=== PATIENT | female | born 1995 | race African-American/Black ===

== ENCOUNTER 2017-01-25 12:06 | Emergency (ER) | payer OTHER ==
--- NOTE | ~2017-01-25 | US106 ---
[facility] A Service of [facility] & [facility] RADIOLOGY TEXT RESULTS PATIENT: LIZZ VALLE LOCATION: CFTX : [birth year] UNIT #: [id number] AGE: [address]: Sofy Martin APRN SEX: F ORDER DR: [id number] [facility] [address] [place], [place] [address] [id number] MR#: [id number] Acc #: [id number] NAME: LIZZ VALLE : 1995 SEX: F STUDY DATE/TIME: 01/25/2017 13:44 UNIT: CFAL ROOM: STUDY DESCRIPTION: US Preg Uterus Transvaginal Attending Physician: Sofy Martin A.P.R.N. Ordering Physician: Ed Petr Rodriguez M.D. Primary Care Physician: No Primary Care Physician MEDICAL IMAGING REPORT This report is preliminary unless electronic signature is present EXAM Transabdominal and transvaginal pelvic ultrasound. DATE 01/25/2017 HISTORY 21-year-old female with complaints of pelvic pain for 1 week. Quantitative beta hCG pending. G0, P0, AB0. Last initial period 12/22/2016. COMPARISON None FINDINGS Uterus measures 5.0 x 4.3 x 9.3 cm. What appears to be an intrauterine gestational sac with surrounding decidual reaction is seen, measuring about 7 mm. What appears to be a tiny yolk sac is seen within it measuring just slightly over 1 cm. No pole is identified. No extrauterine gestational sac is identified. There is a simple cyst in the right ovary measuring up to 1.8 x 2.4 x 2.0 cm. Normal color spectral Doppler flow is documented within the right ovary. The right ovary measures up to 3.9 x 2.8 x 3.1 cm. Left ovary measures 1.4 x 2.9 x 3.1 cm and contains a few peripheral small follicles. The left ovary demonstrates normal color flow. No pelvic free fluid is identified. IMPRESSION 1. Intrauterine gestational sac is seen containing a small yolk sac. There is no discernible pole at this time. Sonographic estimated age would be approximately 5 weeks, 3 days with an STS. [facility] A Service of [facility] & [facility] RADIOLOGY TEXT RESULTS PATIENT: LIZZ VALLE LOCATION: CFTX : 93 UNIT #: [id number] AGE: [address]: Sofy Martin APRN SEX: F ORDER DR: estimated date of delivery 09/24/2017. Continued clinical and sonographic followup would be recommended. 2. Simple right ovarian cyst measuring 2.4 cm. 3. Normal flow is documented to each ovary. 4. No pelvic free fluid. Dictated by... Mya Knowles M.D. THIS IS AN ELECTRONICALLY VERIFIED REPORT Mya Knowles M.D. at 01/27/2017 7:14 AM CHAN/tex TD: 01/25/2017 15:09 JOB #: [id number] MEDICAL IMAGING REPORT Page 1 of 1 COPY
[~2017-01-25 12:06] MED LIST: AMOXICILLIN PO; CLARITIN10 MG PO; IBUPROFEN PO
[2017-01-25 12:58] LABS: URINE SOURCE CLEAN CATCH
[2017-01-25 13:10] LABS: URINE APPEARANCE CLEAR; URINE BILIRUBIN NEG (NEG); URINE BLOOD NEG (NEG); URINE COLOR YELLOW; URINE GLUCOSE NEG (NEG); URINE KETONE NEG (NEG); URINE LEUKOCYTE ESTERASE NEG (NEG); URINE NITRATE NEG (NEG); URINE PH 5.5 (5-8); URINE PROTEIN NEG (NEG); URINE SPECIFIC GRAVITY 1.027 (1.003-1.035)
[2017-01-25 13:16] LABS: CULTURE INDICATED? NO
[2017-01-25 13:44] LABS: BASOPHIL# 0.1 X10e3 (0-0.3); BASOPHIL% 0.5 % (0-2.5); EOSINOPHIL# 0.1 X10e3 (0-0.7); EOSINOPHIL% 0.6 % (0.0-7.0); HEMATOCRIT 44.8 % (35.0-45.0); HEMOGLOBIN 14.8 gm/dL (12.0-16.0); LYMPHOCYTE# 2.7 X10e3 (1.0-3.5); MEAN CELL VOLUME 91.3 FL (83-96); MEAN CORPUSCULAR HEMOGLOBIN 30.2 PG (28-34); MEAN PLATELET VOLUME 9.2 FL (6.5-11.5); MONOCYTE% 8.1 % (3.0-12.0); NEUTROPHIL% 67.8 % (40-75); PLATELET COUNT 236 X10e3 (140-420); RED BLOOD COUNT 4.91 X10e (3.90-5.30); RED CELL DISTRIBUTION WIDTH 13.5 % (11.0-15.5); WHITE BLOOD COUNT 11.9 X10e3 (4.0-10.5)
[2017-01-25 13:47] LABS: DIFF IND NO
[2017-01-25 14:07] LABS: BUN/CREATININE RATIO 16.25; CALCIUM SERUM 9.1 mg/dL (8.4-10.2); CREATININE SERUM 0.8 mg/dL (0.6-1.4); GLOM FILT RATE Estimated 120.5 mL/min (>60); POTASSIUM 3.8 mmol/L (3.5-5.1)
[2017-01-27 23:35] LABS: CHLAMYDIA TRACH Not Detected (Not Detected); N GONOR Not Detected (Not Detected)
== END 2017-01-25 15:47 | disposition home or self-care (01) ==
LOC: CED 12:06 → CFTX 12:06
PROVIDERS: Nurse Practitioner
DX: O99.89 Other specified diseases and conditions complicating pregnancy, childbirth and the puerperium (principal); R10.2 Pelvic and perineal pain
CPT/HCPCS: 76817; 80048; 81003; 84702; 84703; 85025; 87491; 87591; 87808; 87905; 99284

== ENCOUNTER 2017-02-08 10:43 | Emergency (ER) | payer OTHER ==
[2017-02-08 11:52] LABS: URINE SOURCE CLEAN CATCH
[2017-02-08 12:03] LABS: URINE APPEARANCE CLEAR; URINE BILIRUBIN NEG (NEG); URINE BLOOD NEG (NEG); URINE COLOR YELLOW; URINE GLUCOSE NEG (NEG); URINE KETONE 1+ (NEG); URINE LEUKOCYTE ESTERASE NEG (NEG); URINE NITRATE NEG (NEG); URINE PH 5.5 (5-8); URINE PROTEIN NEG (NEG); URINE SPECIFIC GRAVITY 1.026 (1.003-1.035); URINE UROBILINOGEN 0.2 MG/DL (NEG)
[2017-02-08 12:10] LABS: BASOPHIL% 0.3 % (0-2.5); EOSINOPHIL% 0.3 % (0.0-7.0); HEMATOCRIT 43.5 % (35.0-45.0); HEMOGLOBIN 14.3 gm/dL (12.0-16.0); LYMPHOCYTE# 1.8 X10e3 (1.0-3.5); LYMPHOCYTE% 18.2 % (17.0-45.0); MEAN CELL VOLUME 92.2 FL (83-96); MEAN CORPUSCULAR HEMOGLOBIN 30.3 PG (28-34); MEAN CORPUSCULAR HGB CONC 32.8 g/dL (30-36); MEAN PLATELET VOLUME 9.5 FL (6.5-11.5); MONOCYTE# 0.6 X10e3 (0-1.0); NEUTROPHIL# 7.6 X10e3 (1.5-7.1); NEUTROPHIL% 75.2 % (40-75); PLATELET COUNT 235 X10e3 (140-420); RED BLOOD COUNT 4.72 X10e (3.90-5.30); RED CELL DISTRIBUTION WIDTH 13.3 % (11.0-15.5); WHITE BLOOD COUNT 10.1 X10e3 (4.0-10.5)
[2017-02-08 12:11] LABS: DIFF IND NO
[2017-02-08 12:13] LABS: CULTURE INDICATED? NO
[2017-02-08 12:31] LABS: BILIRUBIN, DIRECT 0.1 mg/dL (0.0-0.2); BILIRUBIN,INDIRECT 0.5 mg/dL (0.0-0.9); BILIRUBIN,TOTAL 0.6 mg/dL (0.2-2.0); CALCIUM SERUM 9.1 mg/dL (8.4-10.2); CREATININE SERUM 0.7 mg/dL (0.6-1.4); GLOM FILT RATE Estimated 141.5 mL/min (>60); POTASSIUM 3.5 mmol/L (3.5-5.1); PROTEIN TOTAL SERUM 7.6 g/dL (6.0-8.3)
== END 2017-02-08 13:00 | disposition home or self-care (01) ==
LOC: CED 10:43 → CFTX 10:43
PROVIDERS: Nurse Practitioner
DX: O21.0 Mild hyperemesis gravidarum (principal)
CPT/HCPCS: 36415; 80048; 80076; 81003; 83690; 84702; 85025; 99284